=== PATIENT | male | born 1985 | race Two or more races ===

== ENCOUNTER 2019-07-02 12:02 | Emergency (ER) | payer MEDICAID, OTHER ==
[~2019-07-02] VITALS: Ht 165.1 cm; Wt 90.9 kg
[2019-07-02] MEDS ORDERED: morphine 4 MG/ML inj SYRINge IV ONE ×3 (12:15→14:40)
[2019-07-02] MEDS ORDERED: ondansetron/PF 4mg/2ml inj IV ONE (12:15)
[2019-07-02] MEDS ORDERED: normal saline 1000ML IV soln IVB ONE (12:15)
--- NOTE | 2019-07-02 12:24 | NUR ---
SPOKE TO DR LEE REGARDING PLAN OF CARE
[2019-07-02] MEDS ORDERED: diphenhydrAMINE 50 mg/ml inj IV ONE (12:25)
[2019-07-02 12:34] LABS: EOSINOPHILS # (AUTO) 0.2 X10'3 (0-0.9); HEMOGLOBIN 16.7 g/dl (14.0-17.9); LYMPHOCYTES # (AUTO) 4.4 X10'3 (1.1-4.8); LYMPHOCYTES % (AUTO) 54.6 % (21-51); MONOCYTES # (AUTO) 0.6 X10'3 (0-0.9); NEUTROPHILS # (AUTO) 2.8 X10'3 (1.8-7.7); WHITE BLOOD COUNT 8.1 X10'3 (4.5-11.0)
[2019-07-02 12:36] LABS: BASOPHILS % (AUTO) 0.5 % (0-1); EOSINOPHILS % (AUTO) 2.4 % (0-6); HEMATOCRIT 48.3 % (42.0-52.0); MEAN CORPUSCULAR HEMOGLOBIN 33.5 PG (27.0-31.0); MEAN CORPUSCULAR HGB CONC 34.6 g/dL (33.0-36.5); MEAN CORPUSCULAR VOLUME 96.7 FL (78-98); MEAN PLATELET VOLUME 8.2 FL (7.4-10.4); MONOCYTES % (AUTO) 7.7 % (2-12); NEUTROPHILS % (AUTO) 34.8 % (42-75); PLATELET COUNT 244 X10'3 (140-440); RED BLOOD COUNT 4.99 X10'6 (4.70-6.10); RED CELL DISTRIBUTION WIDTH 12.8 % (11.5-14.5)
[2019-07-02] MEDS ORDERED: TETanus/Pertussis (Acell)/Diphther VAC/PF (Tdap-Adult) 0.5ml syringe IM ONE (12:45)
[2019-07-02 13:28] LABS: ALANINE AMINOTRANSFERASE 46 U/L (12-78); ALBUMIN 4.1 G/DL (3.4-5.0); ALBUMIN/GLOBULIN RATIO 0.9 (1.1-1.5); ALKALINE PHOSPHATASE 68 IU/L (46-116); ANION GAP 12 (8-16); ASPARTATE AMINO TRANSFERASE 24 U/L (10-37); BILIRUBIN,TOTAL 0.5 MG/DL (0.1-1.0); BLOOD UREA NITROGEN 12 MG/DL (7-18); BUN/CREATININE RATIO 10.8 (5.4-32.0); CALCIUM 8.7 MG/DL (8.5-10.1); CHLORIDE 102 MMOL/L (99-107); CREATININE 1.11 MG/DL (0.60-1.10); GLUCOSE 167 MG/DL (70-104); POTASSIUM 3.4 MMOL/L (3.5-5.1); SODIUM 140 MMOL/L (135-145); TOTAL CARBON DIOXIDE 26.1 MMOL/L (24-32); TOTAL PROTEIN 8.5 G/DL (6.4-8.2); eGFR 75 ML/MIN
--- NOTE | 2019-07-02 15:15 | NUR ---
REPORT TO SHE[facility]. PATIENT TO GO POV
[2019-07-02 15:55] VITALS: BP 148/91
== END 2019-07-02 15:57 | disposition short-term general hospital (02) ==
LOC: ER 12:03
DX: T21.21XA Burn of second degree of chest wall, initial encounter (principal); T22.20XA Burn of second degree of shoulder and upper limb, except wrist and hand, unspecified site, initial encounter; T22.211A Burn of second degree of right forearm, initial encounter; T21.12XA Burn of first degree of abdominal wall, initial encounter; T31.0 Burns involving less than 10% of body surface; X12.XXXA Contact with other hot fluids, initial encounter; Y93.89 Activity, other specified; Y92.89 Other specified places as the place of occurrence of the external cause; Y99.8 Other external cause status
CPT/HCPCS: 16000; 36415; 80053; 85025; 90471; 90715; 96374; 96375; 96376; 99285; J1200; J2270; J2405; J7030